=== PATIENT | male | born 1970 | race Caucasian/White ===

== ENCOUNTER 2017-07-17 14:14 | Emergency (ER) | payer MEDICAID ==
[~2017-07-17] VITALS: Ht 172.7 cm; Wt 71.4 kg
[2017-07-17 15:11] VITALS: BP 136/93
== END 2017-07-17 15:15 | disposition home or self-care (01) ==
LOC: ED 15:09
DX: J20.8 Acute bronchitis due to other specified organisms (principal); J45.909 Unspecified asthma, uncomplicated
CPT/HCPCS: 71010; 93005; 99284